=== PATIENT | female | born 1960 | race Caucasian/White ===

== ENCOUNTER → 2018-09-20 | Outpatient (CLI) | payer BC, OTHER | LOC: MRI 12:23 | DX: R41.3 Other amnesia (principal); F07.81 Postconcussional syndrome; R51 Headache ==

== ENCOUNTER 2021-04-25 11:39 | Observation (INO) | payer BC, OTHER ==
[~2021-04-25] VITALS: Ht 162.6 cm; Wt 64.4 kg
[~2021-04-25 11:39] MED LIST: LIONS MANE PO; MEGARED OMEGA-1 EAC1 PO; TURMERIC500 M2 PO; [UNRECOGNIZED DRUG - OTHER] PO
[2021-04-25 13:22] VITALS: BP 144/71
[2021-04-25 18:07] VITALS: BP 105/78
[2021-04-25 19:03] VITALS: BP 141/65
--- NOTE | 2021-04-26 02:31 | NUR ---
ASSUMED PT CARE AT 1900.PT C/O PAIN TO HER R KNEE,MANAGED WITH MED.PT UP WITH ASSIST X1 GB/WALKER TO THE [facility],GOOD ENDURANCE NOTED.DRSG TO HER R KNEE C/D/I WITH POLAR PACK,SCD AND PERFECTO HOSE IN PLACE.PT WAS NAUSEOUS AT START OF SHIFT,PRN REGLAN GIVEN,EFFECTIVE.PT RESTING ON HER BED AT THIS TIME.FREQUENT CHECKS MAINTAINED.CALL LIGHT WITHIN REACH.
[2021-04-26 05:09] VITALS: BP 133/63
[2021-04-26 07:19] VITALS: BP 132/55
--- NOTE | 2021-04-26 09:24 | NUR ---
Assumed care of pt at 0700. Pt a&ox4. Dressing c/d/i. SBA to the toilet with gait-belt and walker. Pain controlled with prn pain medications. Pt worked with pt this am and will have another session in the afternoon. Possible d/c to home. Call light within reach. Fall precautions in place. Will continue to monitor.
--- NOTE | 2021-04-26 10:47 | NUR ---
ASSESSMENT: CM REVIEWED CHART AND SPOKE WITH PT AT THE BEDSIDE. PT IS S/P RIGHT TKA. PT REPORTS THAT SHE LIVES IN A HOUSE WITH HER . PT REPORTS HAVING 3 STEPS TO ENTER THE HOME AND NO STEPS ONCE INSIDE. PT REPORTS THAT SHE HAS A WALKER AND A CANE AT HOME TO USE IF NEEDED. PT REPORTS THAT SHE HAS BEEN INDEPENDENT WITH ADLS AND AMBULATION PRIOR. PT REPORTS THAT SHE HAS OUTPATIENT THERAPY ALREADY ARRANGED TO BEGIN TOMORROW. PT DOES NOT ANTICIPATE HAVING ANY NEEDS FROM CM. PT IS TO WORK ON STAIRS THIS AFTERNOON AND POSSIBLE DISCHARGE HOME. CM WILL CONTINUE TO FOLLOW TO ASSIST NEEDED.
--- NOTE | 2021-04-26 11:04 | O ---
[facility] [place] [address] [place] [address] OPERATIVE REPORT Name: SARAH DUBOSE Room #: 434-P [facility] Laila Pérez#: [id number] Admission: 04/25/21 Attend Phys: Louis Sullivan MD Discharge: Date of : 56 Report #: [id number] THIS REPORT FOR: cc: FAM - Family physician unknown FAM - Family physician unknown Louis Sullivan MD ~ DATE OF SERVICE: 04/25/2021 PREOPERATIVE DIAGNOSIS: Right knee osteoarthritis. POSTOPERATIVE DIAGNOSIS: Right knee osteoarthritis. PROCEDURE: Right total knee arthroplasty using Navio robotic. INDICATION FOR FLAP PRESSER: Throughout the case, extensive retraction, manipulation of the knee was required. This was afforded to me by my business assistant. ANESTHESIA: LMA with adductor canal block. IMPLANTS: A [employer]hew size 3 Journey II BCS Oxinium femur, size 3 tibia, size 9 polyethylene, size 29 patella. TOURNIQUET TIME: 50 minutes. ESTIMATED BLOOD LOSS: 25 mL. COMPLICATIONS: None. SPECIMENS: None. CONDITION UPON LEAVING THE OR: Stable. INDICATIONS FOR PROCEDURE: The patient is a 60-year-old female with right knee osteoarthritis. She has failed conservative measures for this and after discussion with her, she elected for right total knee arthroplasty. DESCRIPTION OF PROCEDURE: Risks, benefits, alternatives, complications were discussed in detail with the patient including but not limited to risk of anesthesia; risk of damage to nerves, arteries, blood vessels; risk for infection, bleeding; risk for continued knee pain; need for reoperation. Informed consent was obtained from the patient. Right knee was appropriately marked in the preoperative holding area. IV clindamycin was given for preoperative antibiotics. She was brought to operating room and placed in the supine position on the operating room table. LMA anesthesia was induced without complication. Tourniquet was placed on the right thigh. Right lower extremity was prepped and draped in normal sterile fashion. Timeout was performed, [facility] [address] [place] [address] OPERATIVE REPORT Name: SARAH DUBOSE Room #: 434-P [facility]#: [id number] Admission: 04/25/21 Attend Phys: Louis Sullivan MD Discharge: Date of : 56 Report #: [id number] properly identifying the patient, procedure, as well as the instrumentation and implants. All in the operating room in agreement. Right lower extremity was exsanguinated, tourniquet was inflated. Tourniquet time was 50 minutes. Standard midline approach to the knee was made with 10 blade through the skin. Dissection was taken down sharply to the fascia and deep flaps were developed medially and laterally. Fresh 10 blade was used to make a medial parapatellar arthrotomy and the knee was inspected. There was moderate medial and patellofemoral compartment osteoarthritis. ACL and PCL were removed sharply. Reference pins were placed in the femur and the tibia. The knee was then digitally mapped using CVRx robotic system. Intraoperative plan was made. We sized the size 3 femur, the size 3 tibia, and a 10 spacer. After acceptance of the intraoperative plan, the distal femoral cut was made with Navio bur. Distal femoral cutting block was pinned in place and chamfer cuts were made. Attention was turned to the tibia. Remainder of the menisci removed with Bovie cautery. Tibial resection guide was placed using Navio for placement and tibial resection was made. Flexion and extension gaps were checked and found to be tight medially in extension. A limited medial release was performed using the pie crust technique. This balanced the knee well. Tibia sized, found to be a size 3. Size 3 tibial trial was placed, pinned and punched. A size 3 femoral trial was placed and box cut was made. This was then trialed with a size 9 polyethylene. Size 9 polyethylene demonstrated 1-2 mm of laxity medially and laterally throughout range of motion of the knee. A 9 mm of bone was resected from the posterior surface of the patella and a size 29 patellar trial button was placed. Knee was taken through range of motion, found to be stable, found to have good patellar tracking. Trial components were removed. Bone ends were thoroughly irrigated with normal saline. Final size 3 tibia, size 3 Journey II BCS Oxinium femur, and a size 29 patella were cemented in place using standard cementation techniques. While the cement cured, a periarticular injection consisting of morphine, ropivacaine, and epinephrine was placed around the knee joint capsule. After the cement cured, tourniquet was deflated. Hemostasis was obtained with Bovie cautery. A final size 9 polyethylene was placed. A gram of vancomycin was placed deep in the joint. The fascia was closed with 0 Vicryl. Skin was closed with 2-0 Vicryl, 3-0 Monocryl. Dermabond and a ELLE dressing were applied. The patient tolerated this procedure well and went to recovery room under care of anesthesia postoperatively. <ELECTRONICALLY SIGNED> By: Louis Sullivan MD 04/26/21 [id number] Louis Sullivan MD /nt
[2021-04-26 13:49] VITALS: BP 132/55
== END 2021-04-26 14:06 | disposition home or self-care (01) ==
LOC: OR → 4S 17:41 → OR 17:42 → 4S 17:42
PROVIDERS: ADMIT Orthopaedic Surgery; ATTEND Orthopaedic Surgery
DX: M17.11 Unilateral primary osteoarthritis, right knee (principal); Z20.822 Contact with and (suspected) exposure to COVID-19; F17.200 Nicotine dependence, unspecified, uncomplicated; Z79.899 Other long term (current) drug therapy; Z23 Encounter for immunization
CPT/HCPCS: 27447; 90686; S2900; 50010; 50101; 50415; 50954; 51130; 51225; 51320; 53000; 53078; 53365; 54118; 56527; 56528; 57095; 57103; 57110; 57127; 62110; 62900; 70005

== ENCOUNTER → 2021-06-30 | Outpatient (CLI) | payer BC, OTHER ==
[~2021-06-30] MED LIST changes: +ALEVE220 M1 PO; +HYDROCODON-ACE1 EAC7 PO
[2021-06-30 09:45] LABS: HEMATOCRIT 39.1 % (37.0-47.0); HEMOGLOBIN 12.8 gm/dL (12.0-15.0); MCH 32.2 pg (26.0-34.0); MCHC 32.9 g/dL (28.0-37.0); RBC 3.98 mil/uL (4.20-5.00); RDW 14.3 % (10.5-14.5); WBC 8.4 thou/uL (4.0-11.0)
[2021-06-30 09:46] LABS: URINE BILIRUBIN NEGATIVE (Negative); URINE BLOOD NEGATIVE (Negative); URINE CLARITY CLEAR; URINE COLOR YELLOW; URINE GLUCOSE-RANDOM* NEGATIVE (Negative); URINE KETONES NEGATIVE (Negative); URINE LEUKOCYTES-REFLEX NEGATIVE (Negative); URINE NITRITE-REFLEX NEGATIVE (Negative); URINE PROTEIN (DIPSTICK) NEGATIVE (Negative); URINE UROBILINOGEN 0.2 E.U./dl (0.2-1.0)
[2021-06-30 10:00] LABS: ALBUMIN 3.8 g/dL (3.4-5.0); CALCIUM 9.3 mg/dL (8.5-10.1); CREATININE 0.8 mg/dL (0.6-1.0); POTASSIUM 4.1 mmol/L (3.5-5.1)
[2021-06-30 10:03] LABS: INR 0.92; PROTIME 10.1 Seconds (10.5-12.1)
== END ==
LOC: PAC 08:30
PROVIDERS: ATTEND Orthopaedic Surgery
DX: Z01.812 Encounter for preprocedural laboratory examination (principal); M17.11 Unilateral primary osteoarthritis, right knee

== ENCOUNTER 2021-07-11 06:08 | Observation (INO) | payer BC, OTHER ==
[~2021-07-11] VITALS: Ht 162.6 cm; Wt 61.7 kg
[2021-07-11] VITALS (8 sets, daily range): BP systolic 116–141; BP diastolic 55–75
--- NOTE | ~2021-07-11 | O ---
[facility] [place] [address] [place] [address] OPERATIVE REPORT Name: SARAH DUBOSE Room #: 448-P [facility] M..#: [id number] Admission: 07/11/21 Attend Phys: Louis Sullivan MD Discharge: Date of : 56 Report #: [id number] THIS REPORT FOR: cc: THOMAS GALEANO Physician not on staff Louis Sullivan MD ~ DATE OF SERVICE: 07/11/2021 PREOPERATIVE DIAGNOSIS: Left knee osteoarthritis. POSTOPERATIVE DIAGNOSIS: Left knee osteoarthritis. PROCEDURE: Left total knee arthroplasty using Navio robotic assistance. SURGEON: Louis Sullivan MD CARPENTER RAILCAR: Yesica Do PA-C. INDICATION FOR CARPENTER RAILCAR: Throughout the case, extensive retraction, manipulation of the knee was required. This was supported by my assistant women's rowing coach. ANESTHESIA: LMA with adductor canal block. IMPLANTS: Zaman [employer] Nephew size 4 Journey II BCS Oxinium femur, size 3 tibia, size 10 constrained polyethylene, size 29 patella. ESTIMATED BLOOD LOSS: 25 mL. COMPLICATIONS: None. SPECIMENS: None. CONDITION UPON LEAVING THE OR: Stable. INDICATIONS FOR PROCEDURE: The patient is a 61-year-old female with left knee osteoarthritis. She had failed conservative measures for this, and after discussion with her, she elected for left total knee arthroplasty. DESCRIPTION OF PROCEDURE: Risks, benefits, alternatives, complications were discussed in detail with the patient including but not limited to risk of anesthesia, risk of damage to nerves, arteries, blood vessels, risk for infection, bleeding, risk for continued knee pain, need for reoperation. Informed consent was obtained from the patient. Left knee was appropriately marked in the preoperative holding area. IV Ancef was given for preoperative antibiotics. She was brought to the operating room and placed in supine position on the operating table. LMA anesthesia was induced without [facility] [address] [place] [address] OPERATIVE REPORT Name: SARAH DUBOSE Room #: 448[id number] Admission: 07/11/21 Attend Phys: Louis Sullivan MD Discharge: Date of : 56 Report #: [id number] complication. Tourniquet was placed on the left thigh. Left lower extremity was prepped and draped in normal sterile fashion. Timeout was performed properly identifying the patient and procedure as well as the instrumentation and implants. All in the operating room in agreement. Left lower extremity was exsanguinated, tourniquet was inflated. Tourniquet time was 49 minutes. Standard midline approach to the knee was made with 10-blade through the skin. Dissection was taken down sharply to the fascia and deep flaps were developed medially and laterally. Fresh 10-blade was used to make a medial parapatellar arthrotomy and the knee was inspected. There was moderate to severe tricompartmental osteoarthritis. ACL and PCL were removed sharply. Reference pins were placed in the femur and the tibia. The knee was then digitally mapped using the [employer] robotic system. Intraoperative plan was made. We sized the size 4 femur, size 3 tibia and a 10 spacer. After acceptance of the intraoperative plan, the distal femoral cut was made with Navio bur. Distal femoral cutting block was pinned in place and chamfer cuts were made. Attention was turned to the tibia. Remainder of the menisci removed with Bovie cautery. Tibial resection guide was pinned in place using Navio for placement. Tibial resection was made. Flexion and extension gaps were checked and found to have good balance in flexion and extension both medially and laterally. Tibia was sized, found to be a size 3. Size 3 tibial trial was placed, pinned and punched. Size 4 femoral trial was placed and box cut was made. This was then trialed with a size 9 and then a size 10 polyethylene. Size 10 polyethylene demonstrated 1-2 mm of laxity medially with up to 3 mm laterally in deep flexion. It was felt we can make up for this with a constrained implant, 9 mm of bone was resected from the posterior surface of the patella and a size 29 patellar trial button was placed. Knee was taken through range of motion, found to be stable, found to have good patellar tracking. Trial components were removed. Bone ends were thoroughly irrigated with normal saline. A final size 3 tibia, size 4 Journey II BCS Oxinium femur and a size 29 patella were cemented in place using standard cementation techniques. While the cement cured, a periarticular injection consisting of morphine, ropivacaine, epinephrine, Toradol was placed around the knee joint capsule. After the cement cured, the tourniquet was deflated. Hemostasis was obtained with Bovie cautery. A final 10 constrained polyethylene was placed. A gram of vancomycin was placed deep in the joint. The fascia was closed with 0 Vicryl. Skin was closed with 2-0 Vicryl, 3-0 Monocryl. Dermabond and a ELLE dressing was applied. The patient tolerated this procedure well and went to recovery room under care of anesthesia postoperatively. By: [id number] Louis Sullivan MD /nt
--- NOTE | 2021-07-11 18:30 | NUR ---
PT RECEIVED FROM [facility] AT 1310 ALERT AND IN NO ACUTE DISTRESS. USED BEDPAN AND VOIDED. ADMISSION ASSESSMENT AND PT ORIENTED TO THE UNIT. AT BEDSIDE. DSNG DRY ON KNEE. TEDS,SCDS AND POLAR DEVON IN PLACE. WALKED W/ THERAPIST DOWN THE [place] AND DID WELL. SOME MILD FOOT DROP BECAUSE OF BLOCK BUT WILL BE GONE IN AM. SOME MILD NAUSEA RESOLVED W/ ZOFRAN. PAIN MEDS GIVEN W/ GOOD RELIEF.
--- NOTE | 2021-07-12 10:02 | NUR ---
ASSUMED PT CARE THIS AM. PT IS ALERT & ORIENTED X4. PT HAS IV SITE ON L HAND RUNNING D5 1/2 NC @100ML/HR. PT IS ON ROOM AIR. PT IS STANDBY ASSIST TO THE BATHROOM WITH WALKER. PT HAS PERFECTO HOSES, POLAR PACK, ELLE DRESSING, SCD. PT IS ON ROOM AIR. PER PHYSICAL THERAPY DID GOOD AND SAFE TO GO HOME. WILL CONTINUE TO MONITOR PT. FOLLOW POC.
[2021-07-12 10:21] VITALS: BP 134/55
== END 2021-07-12 11:16 | disposition home or self-care (01) ==
LOC: 4S 06:08 → OR 06:08 → PRE 07:30 → OR 07:40 → PRE 08:20 → OR 08:22 → PRE 08:57 → OR 09:28 → PRE 10:58 → EDSTATUS 11:39 → OR 11:44 → 4S 11:50 → OR 11:51 → 4S 11:51 → OR 12:03 → PRE 12:15 → OR 12:27 → PRE 12:43 → OR 12:44 → PRE 12:49 → OR 13:28 → PRE 13:41 → OR 13:43 → PRE 14:37 → OR 15:40 → PRE 15:54 → OR 16:40 → 4S 07-12 11:16
PROVIDERS: ADMIT Orthopaedic Surgery; ATTEND Orthopaedic Surgery
DX: M17.12 Unilateral primary osteoarthritis, left knee (principal); Z20.822 Contact with and (suspected) exposure to COVID-19; Z79.899 Other long term (current) drug therapy; Z79.01 Long term (current) use of anticoagulants; F17.210 Nicotine dependence, cigarettes, uncomplicated
CPT/HCPCS: 10102; 50010; 50101; 50415; 50954; 51130; 51225; 53000; 53078; 53365; 54118; 56527; 56528; 57095; 57103; 57110; 57127; 57179; 59024; 62110; 62900; 64043; 65060; 70005